=== PATIENT | male | born 1970 | race Hispanic/Latino ===

== ENCOUNTER 2024-02-05 09:29 | Observation (INO) | payer SELFPAY ==
--- NOTE | 2024-02-05 10:52 | RAD REPORT ---
EXAM DESCRIPTION: Mello Single View02/05/2024 10:28 am CLINICAL HISTORY: Dizziness COMPARISON: none FINDINGS: The lungs appear clear of acute infiltrate. The heart is normal size IMPRESSION: No acute abnormalities displayed
[2024-02-05] MEDS ORDERED: cloNIDine HCL 0.1 MG TAB ONE (11:01)
[2024-02-05 11:19] LABS: Absolute Basophils 0.1 K/uL (0-0.5); Absolute Lymphocytes (CBC) 1.6 K/uL (0.7-4.9); Basophils % 1.1 % (0-1.3); Hematocrit 47.8 % (39.6-49.0); Lymphocytes % 33.5 % (15.3-44.8); MCV 91.6 fL (80-100); MPV 8.8 fL (7.6-11.3); Platelets 172 thou/uL (152-406); RBC Red Blood Cell Count 5.21 M/uL (4.33-5.43)
[2024-02-05 11:36] LABS: Anion Gap 9.2 mEq/L (5.0-15.0); Magnesium 2.4 mg/dL (1.6-2.4); Potassium 4.2 mEq/L (3.5-5.1)
[2024-02-05 11:40] LABS: Troponin High Sensitivity 62.2 pg/mL (<58.9)
--- NOTE | 2024-02-05 12:05 | EDPHYS ---
Physician Documentation [facility] Name: Shimon Marcial Age: 53 yrs Sex: Male : 1970 Arrival Date: 02/05/2024 Time: 09:29 Bed 3 Private MD: ED Physician Jeferson Verma HPI: 02/04 11:16 This 53 yrs old Male presents to ER via Ambulatory with complaints of Anxiety, ms3 High Blood Pressure. 11:16 53-year-old male with past medical history of hypertension, diabetes presents to the [facility] emergency department for lightheadedness that occurred after beginning to texture a wall at work today. Patient states he felt like his blood pressure went up. Patient denies nausea, vomiting, chest pain, shortness of breath. Patient denies any alleviating or inciting factors. Historical: - Allergies: 10:53 No Known Allergies; aa5 - Home Meds: 10:53 Unable to obtain [Active]; aa5 - PMHx: 10:53 Hypertensive disorder; NIDDM; aa5 - PSHx: 10:53 None; aa5 - Immunization history:: Adult Immunizations up to date, Client reports receiving the 2nd dose of the Covid vaccine, Last tetanus immunization: up to date. - Social history:: Smoking status: Patient denies any tobacco usage or history of. Patient uses alcohol, on a daily basis. claims drinking about a 6 pack/day. ROS: 11:16 Constitutional: Negative for fever, and chills. Neck: Negative for injury, pain, and ms3 swelling, Cardiovascular: Negative for chest pain, and palpitations. Respiratory: Negative for shortness of breath, cough, wheezing, and pleuritic chest pain, Abdomen/GI: Negative for abdominal pain, nausea, vomiting, diarrhea, and constipation, MS/Extremity: Negative for injury and deformity, Skin: Negative for injury, rash, and discoloration, Neuro: Negative for headache, weakness, numbness, tingling. 11:16 Neuro: Positive for Lightheadedness, Exam: 11:16 Constitutional: This is a well developed, well nourished patient who is awake, alert, ms3 and in no acute distress. Head/Face: Normocephalic, atraumatic. Chest/axilla: Normal chest wall appearance and motion. Nontender with no deformity. Cardiovascular: Regular rate and rhythm with a normal S1 and S2. No gallops, murmurs, or rubs. Normal PMI, no JVD. No pulse deficits. Respiratory: Lungs have equal breath sounds bilaterally, clear to auscultation and percussion. No rales, rhonchi or wheezes noted. No increased work of breathing, no retractions or nasal flaring. Abdomen/GI: Soft, non-tender, with normal bowel sounds. No distension or tympany. No guarding or rebound. No evidence of tenderness throughout. Skin: Warm, dry with normal turgor. Normal color with no rashes, no lesions, and no evidence of cellulitis. MS/ Extremity: Pulses equal, no cyanosis. Neurovascular intact. Full, normal range of motion. 11:16 ECG was reviewed by the Attending Physician. ms3 Vital Signs: 10:51 BP 191 / 89; Pulse 68; Resp 18; Temp 99.1; Pulse Ox 99% ; Weight 107.95 kg; Height 5 aa5 ft. 8 in. ; Pain 0/10; 12:05 BP 170 / 93; Pulse 72; Resp 17 S; Pulse Ox 100% on R/A; kc6 12:25 BP 159 / 90; kc6 13:34 BP 150 / 97; Pulse 69; Resp 16 S; Pulse Ox 98% on R/A; kc6 10:51 Body Mass Index 36.19 (107.95 kg, 172.72 cm) aa5 10:51 Pain Scale: Adult aa5 MDM: 10:20 Patient medically screened. ms3 11:16 Differential diagnosis: hypertensive crisis, Malignant HTN, Arrhythmia. ms3 12:04 Data reviewed: vital signs, nurses notes, lab test result(s), EKG, radiologic studies, ms3 and as a result, I will admit patient. Consideration of Admission/Observation Patient was admitted/placed on observation. Management of patient was discussed with the following: Hospitalist: Dr Michelle. Prepress Stripper: Dr Edmonds. I considered the following discharge prescriptions or medication management in the emergency department Medications were administered in the Emergency Department. See MAR. Independent interpretation of the following test(s) in the Emergency Department EKG: See my EKG interpretation above. Care significantly affected by the following chronic conditions: Diabetes, Hypertension. Counseling: I had a detailed discussion with the patient and/or guardian regarding the historical points, exam findings, and any diagnostic results supporting the discharge/admit diagnosis, lab results, radiology results, the need for further work-up and treatment in the hospital. ED course: Discussed necessity for admission with patient. Patient understands agrees with plan. All questions were answered. Patient remains in stable condition in the emergency department. 02/04 10:12 Order name: Basic Metabolic Panel; Complete Time: 11:45 ms3 02/04 10:12 Order name: CBC with Diff; Complete Time: 11:45 ms3 02/04 10:12 Order name: Magnesium; Complete Time: 11:45 ms3 02/04 10:12 Order name: Troponin HS; Complete Time: 11:45 ms3 02/04 10:12 Order name: XRAY Chest (1 view); Complete Time: 11:45 ms3 02/04 10:12 Order name: EKG; Complete Time: 10:12 ms3 02/04 12:35 Order name: CONS Physician Consult EDMS 02/04 10:12 Order name: Cardiac monitoring; Complete Time: 12:03 ms3 02/04 10:12 Order name: EKG - Nurse/Tech; Complete Time: 11:14 ms3 02/04 10:12 Order name: IV Saline Lock; Complete Time: 11:14 ms3 02/04 10:12 Order name: Labs collected and sent; Complete Time: 11:14 ms3 02/04 10:12 Order name: O2 Per Protocol; Complete Time: 12:03 ms3 02/04 10:12 Order name: O2 Sat Monitoring; Complete Time: 12:03 ms3 EC:16 Rate is 64 beats/min. Rhythm is regular. QRS [place] is Normal. [place] interval is normal. QRS ms3 interval is normal. Clinical impression: NSR w/ Non-specific ST/T Changes. Interpreted by me. Reviewed by me. Administered Medications: 11:06 Drug: cloNIDine PO 0.1 mg PO once Route: PO; aa5 12:03 Follow up: Response: No adverse reaction; Blood pressure is lowered kc6 Disposition Summary: 02/05/24 12:04 Hospitalization Ordered Notes: Hospitalization Status: Inpatient Admission ms3 Provider: Annette Michelle ms3 Condition: Stable ms3 Problem: new ms3 Symptoms: are unchanged ms3 Bed/Room Type: Standard ms3 Location: Telemetry/MedSurg (Inpatient)(02/05/24 18:40) dw Room Assignment: 422(02/05/24 18:40) dw Diagnosis - Essential (primary) hypertension ms3 - Lightheadedness ms3 - Elevated troponin ms3 Forms: - Medication Reconciliation Form ms3 - SBAR form ms3 - Leadership Thank You Letter ms3 Signatures: Dispatcher [employer] Hyun Jovel RN RN Macey Lyon RN RN aa5 Arlene Maldonado Marcus, DO DO ms3 Josefina Gifford RN kc6 Corrections: (The following items were deleted from the chart) 13:13 12:04 Telemetry/MedSurg (Inpatient) ms3 eb 13:13 12:04 ms3 eb 18:40 13:13 [facility] ER HOLD eb dw 18:40 13:13 ERHOLD- eb dw
--- NOTE | 2024-02-05 12:05 | ER ---
Nurse's Notes [facility] Name: Shimon Marcial Age: 53 yrs Sex: Male : 1970 Arrival Date: 02/05/2024 Time: 09:29 Bed 3 Private MD: Diagnosis: Essential (primary) hypertension;Lightheadedness;Elevated troponin Presentation: 02/04 10:51 Chief complaint: Patient states: Pt reports taking all medications as prescribed but aa5 has been unable to check his glucose or BP since Friday. States he was working this morning and "did not feel right. Denies CP, SOB, N/V. Coronavirus screen: Vaccine status: Patient reports receiving the 2nd dose of the covid vaccine. Client denies travel out of the [place] in the last 14 days. Ebola Screen: Patient negative for fever greater than or equal to 101.5 degrees Fahrenheit, and additional compatible Ebola Virus Disease symptoms Patient denies exposure to infectious person. Patient denies travel to an Ebola-affected area in the 21 days before illness onset. Initial Sepsis Screen: Does the patient meet any 2 criteria? No. Patient's initial sepsis screen is negative. Does the patient have a suspected source of infection? No. Patient's initial sepsis screen is negative. Risk Assessment: Do you want to hurt yourself or someone else? Patient reports no desire to harm self or others. Onset of symptoms was February 05, 2024 at 09:00. 10:51 Method Of Arrival: Ambulatory aa5 10:51 Acuity: MACY 2 aa5 Triage Assessment: 10:53 General: Appears in no apparent distress. Behavior is calm, cooperative. Pain: Denies aa5 pain. Cardiovascular: Denies chest pain, diaphoresis, nausea, palpitations, shortness of breath. Respiratory: Denies cough, shortness of breath labored breathing. GI: Patient currently denies nausea, vomiting. Historical: - Allergies: 10:53 No Known Allergies; aa5 - Home Meds: 10:53 Unable to obtain [Active]; aa5 - PMHx: 10:53 Hypertensive disorder; NIDDM; aa5 - PSHx: 10:53 None; aa5 - Immunization history:: Adult Immunizations up to date, Client reports receiving the 2nd dose of the Covid vaccine, Last tetanus immunization: up to date. - Social history:: Smoking status: Patient denies any tobacco usage or history of. Patient uses alcohol, on a daily basis. claims drinking about a 6 pack/day. Screenin:55 [facility] ED Fall Risk Assessment (Adult) History of falling in the last 3 months, aa5 including since admission No falls in past 3 months (0 pts) Confusion or Disorientation No (0 pts) Intoxicated or Sedated No (0 pts) Impaired Gait No (0 pts) Mobility Assist Device Used No (0 pt) Altered Elimination No (0 pt) Score/Fall Risk Level 0 - 2 = Low Risk Oriented to surroundings. Abuse screen: Denies threats or abuse. Denies injuries from another. Nutritional screening: No deficits noted. Tuberculosis screening: No symptoms or risk factors identified. Assessment: 10:55 Reassessment: No changes from previously documented assessment. General: Appears in no aa5 apparent distress. Behavior is calm, cooperative. Cardiovascular: Denies chest pain, diaphoresis, nausea, palpitations, shortness of breath. Respiratory: No deficits noted. Denies cough, shortness of breath labored breathing. 12:04 General: Appears in no apparent distress. comfortable, well groomed, well developed, kc6 Behavior is calm, cooperative, appropriate for age. Pain: Denies pain. Neuro: Level of Consciousness is awake, alert, obeys commands, Oriented to person, place, time, situation, Appropriate for age. Cardiovascular: Denies chest pain, Heart tones S1 S2 present Capillary refill < 3 seconds Rhythm is sinus rhythm. Respiratory: Airway is patent Trachea midline Respiratory effort is even, unlabored, Respiratory pattern is regular, symmetrical. GI: No signs and/or symptoms were reported involving the gastrointestinal system. : No signs and/or symptoms were reported regarding the genitourinary system. EENT: No signs and/or symptoms were reported regarding the EENT system. Derm: No signs and/or symptoms reported regarding the dermatologic system. Skin is intact, is healthy with good turgor, Skin is pink, warm \\T\\ dry. Musculoskeletal: No signs and/or symptoms reported regarding the musculoskeletal system. Circulation, motion, and sensation intact. Capillary refill < 3 seconds, Range of motion: intact in all extremities. 13:33 Reassessment: Patient appears in no apparent distress at this time. No changes from kc6 previously documented assessment. Patient and/or family updated on plan of care and expected duration. Pain level reassessed. Patient is alert, oriented x 3, equal unlabored respirations, skin warm/dry/pink. please see [facility] for further charting. Vital Signs: 10:51 BP 191 / 89; Pulse 68; Resp 18; Temp 99.1; Pulse Ox 99% ; Weight 107.95 kg; Height 5 aa5 ft. 8 in. ; Pain 0/10; 12:05 BP 170 / 93; Pulse 72; Resp 17 S; Pulse Ox 100% on R/A; kc6 12:25 BP 159 / 90; kc6 13:34 BP 150 / 97; Pulse 69; Resp 16 S; Pulse Ox 98% on R/A; kc6 10:51 Body Mass Index 36.19 (107.95 kg, 172.72 cm) aa5 10:51 Pain Scale: Adult aa5 ED Course: 09:40 Patient arrived in ED. im 09:40 Jeferson Verma DO is Attending Physician. ms3 10:30 XRAY Chest (1 view) In Process Unspecified. EDMS 10:53 Triage completed. aa5 10:53 Arm band placed on left wrist. aa5 10:55 Patient has correct armband on for positive identification. Provided Education on: POC, aa5 labs, EKG. treatment plan. 10:55 No provider procedures requiring assistance completed. aa5 11:14 Initial lab(s) drawn, by me, sent to lab. EKG done, by ED staff. Inserted saline lock: [id number] 22 gauge in right wrist, using aseptic technique. Blood collected. 11:57 Josefina Gifford RN is Primary Nurse. kc6 12:03 Annette Michelle MD is Hospitalizing Provider. ms3 13:34 Patient admitted, IV remains in place. kc6 20:14 Primary Nurse role handed off by Josefina Gifford RN cm10 20:34 Diet: Provided with turkey sandwich, chips, pudding, and a sprite. wm Administered Medications: 11:06 Drug: cloNIDine PO 0.1 mg PO once Route: PO; aa5 12:03 Follow up: Response: No adverse reaction; Blood pressure is lowered kc6 Medication: 10:55 VIS not applicable for this client. aa5 Outcome: 12:04 Decision to Hospitalize by Provider. ms3 13:34 Admitted to ER Hold. Please see [facility] for further documentation. kc6 13:34 Condition: good 13:34 Instructed on the need for admit, 22:06 Admitted to Med/surg accompanied by tech, via wheelchair, room 422, Report called to dennys LANZA 22:07 Patient left the ED. tm6 Signatures: Dispatcher [employer] EDMS Macey Townsend, RN RN aa5 Jeferson Verma, DO ms3 Aundrea Aguiar Kaitlyn, RN RN kc6 Marcus Sanchez RN RN jj7 Claudine Alexander Clarissa RN RN cm10 Roscoe Rucker RN RN tm6 Basilio Ortiz jg11
--- NOTE | 2024-02-05 12:28 | P.HP ---
Certification for Inpatient Patient admitted to: Inpatient With expected LOS: <2 Midnights Practitioner: I am a practitioner with admitting privileges, knowledge of patient current condition, hospital course, and medical plan of care. Services: Services provided to patient in accordance with Admission requirements found in Title 42 Section 412.3 of the Code of Federal Regulations Patient History Date of Service: 02/05/24 Reason for admission: Elevated troponin History of Present Illness: Improving 53-year-old male with a past medical history of hypertension,, diabetes presents to the emergency room with elevated blood pressure, anxiety. He reports associated lightheadedness. He reports daily alcohol use, 6 beers daily, no reported chest pain, shortness of breath, nausea vomiting diarrhea. ER lab evaluation was noted to have elevated troponin, hypertension, blood pressure 1 BP 191 / 89; Pulse 68; Resp 18; Temp 99.1; Pulse Ox 99% ; Weight 107.95 kg; Height 5 ft. 8 in. ; Pain 0/10; EKG 6 Rate is 64 beats/min. Rhythm is regular. QRS [place] is Normal. [place] interval is normal. QRS interval is normal. Clinical impression: NSR w/ Non-specific ST/T Changes plan to admit for hypertensive urgency, elevated troponin, NSTEMI, cardiology consulted. Laboratory evaluation troponin 62.2, CBC unremarkable, chest x-ray no acute abnormalities, - Past Medical/Surgical History -: Hypertension -: Xeg-tndrgtt-yjnhegvoy diabetes -: Alcohol use - Social History Smoking Status: Never smoker Alcohol use: Yes CD- Drugs: Yes Place of Residence: Home Review of Systems Per HPI Physical Examination - Physical Exam General: Alert, In no apparent distress, Oriented x3 HEENT: Atraumatic, Normocephalic, PERRLA Neck: 2+ carotid pulse no bruit, JVD not distended Respiratory: Clear to auscultation bilaterally, Normal air movement Cardiovascular: Normal pulses, Regular rate/rhythm Capillary refill: <2 Seconds Gastrointestinal: Normal bowel sounds, Soft and benign Musculoskeletal: No clubbing, No swelling Integumentary: No rashes, No breakdown Neurological: Normal speech, Normal strength at 5/5 x4 extr - Studies Laboratory Data (last 24 hrs) 02/05/24 02/05/24 11:11 11:11 WBC 4.70 Hgb 16.4 Hct 47.8 Plt Count 172 Sodium 136 Potassium 4.2 BUN 13 Creatinine 0.89 Glucose 127 H Magnesium 2.4 Assessment and Plan - Plan Assessment plan NSTEMI elevated troponin Abnormal EKG Hypertensive urgency Cardiology consult, telemetry, trend troponin As needed analgesics, as needed antihypertensives lipid panel blood pressure 1 BP 191 / 89; Pulse 68; Resp 18; Temp 99.1; Pulse Ox 99% ; Weight 107.95 kg; Height 5 ft. 8 in. ; Pain 0/10; EKG 6 Rate is 64 beats/min. Rhythm is regular. QRS [place] is Normal. AR interval is normal. QRS interval is normal. Clinical impression: NSR w/ Non-specific ST/T Changes plan to admit for hypertensive urgency, elevated troponin, NSTEMI, cardiology consulted. Laboratory evaluation troponin 62.2, CBC unremarkable, chest x-ray no acute abnormalities, Alcohol use CIWA per History of essential hypertension Resume appropriate home meds Uan-ohxvwlc-fcfewaiky diabetes mellitus Sliding scale insulin, Accu-Chek Full code DVT Lovenox Diet n.p.o. Disposition Home, independent prior to admission Discharge Plan: Home - Advance Directives Does patient have a Living Will: No Does patient have a Durable POA for Healthcare: No - Code Status/Comfort Care Code Status: Full Code Critical Care: No Time Spent Managing Pts Care (In Minutes): 55
[2024-02-05] MEDS ORDERED: LORazepam 2 MG/ML VIAL IV PRN (12:40)
[2024-02-05 13:54] VITALS: BMI 35.7
[2024-02-05] MEDS: ASPIRIN 81 MG CHEWABLE TABLET PO ONE (15:28)
[2024-02-05] MEDS ORDERED: ASPIRIN 81 MG CHEWABLE TABLET ONE (17:59)
--- NOTE | 2024-02-05 19:30 | CON ---
Date of Consultation: 02/05/2024 Reason For Consultation: Elevated troponin. History Of Present Illness: A 53-year-old male, history of hypertension, diabetes, presented to the emergency room with elevated blood pressure and mild dizziness. Blood pressure was high in the 200 [address] [place]ott. He denies having any chest pain. First troponin was borderline elevated, and the patient does not have any chest pain. Past Medical History: As outlined above in the HPI. Medications: Refer reconciliation sheet for detailed list. Allergies: NO KNOWN DRUG ALLERGIES. Family History: No premature coronary artery disease or cancer. Social History: He does not smoke or drink. Does not use any drugs. Review of Systems: All systems reviewed and they were negative except as mentioned in the HPI. Physical Examination: Vital Signs: Reviewed. Head and Neck: Pupils are equal, reactive to light. Intact eye movements. No JVD. No cervical lym phadenopathy. Neck is supple. Thyroid is not enlarged. Lungs: Clear to auscultation bilaterally. No rhonchi, rales, or crackles. No accessory muscle use. Heart: Regular rate and rhythm. No extra sounds. Abdomen: Soft, nontender. Bowel sounds positive. No organomegaly. No masses or hernia. No rigidi ty or rebound. Extremities: No edema, clubbing, or cyanosis. Intact pulses. Skin: No rash. Neurologic: Alert, awake, oriented x3. No acute focal deficits appreciated. Investigations: First troponin 62. BUN 13, creatinine 0.89, hemoglobin 16.4. Assessment/recommendation: 1.Elevated troponin. No chest pain. It is probably demand ischemia. Trend 2 more sets of cardiac enzymes. Start him on baby aspirin 81 mg daily and plan for an exercise nuclear stress test and an e cho tomorrow. 2.Hypertensive crisis with blood pressure on arrival was 191/89. Recommend to start him on losartan /HCTZ 25/12.5 mg daily and adjust further for better blood pressure control. Obtain an echo. Thank you for the consult. /ANTONI Voice ID: [id number] Report ID: [id number]
[2024-02-05] MEDS ORDERED: ONDANSETRON 4 MG/2 ML VIAL IV PRN (22:22)
[2024-02-05] MEDS ORDERED: FLUMAZENIL 0.1 MG/ML (5 mL VIAL) IV PRN (22:22)
[2024-02-05] MEDS ORDERED: ACETAMINOPHEN 500 MG TAB PO PRN (22:22)
[2024-02-05] MEDS: ATORVASTATIN 20 MG TAB PO SCH (23:01)
[2024-02-05] MEDS: lisinopriL 10 MG TAB PO SCH (23:03)
[2024-02-05] MEDS: METOPROLOL TAR 25 MG TAB PO SCH (23:03)
[2024-02-05] MEDS: INSULIN REGULAR (HUMAN) 100 UNIT/ML SQ SCH (23:03)
[2024-02-06 05:03] LABS: Specific Gravity 1.017 (1.005-1.030); Urine Bilirubin NEGATIVE (Negative); Urine Blood Negative (Negative); Urine Clarity Clear (Clear); Urine Color Light-Yellow (Yellow); Urine Glucose NEGATIVE (Negative); Urine Protein NEGATIVE (Negative); Urine Urobilinogen Normal (Normal); Urine pH 5.5 (5.0-7.0)
[2024-02-06 08:16] LABS: Absolute Lymphocytes (CBC) 1.3 K/uL (0.7-4.9); Basophils % 0.8 % (0-1.3); Hematocrit 42.9 % (39.6-49.0); MCV 92.1 fL (80-100); MPV 8.5 fL (7.6-11.3); Platelets 158 thou/uL (152-406); RBC Red Blood Cell Count 4.66 M/uL (4.33-5.43)
[2024-02-06] MEDS: ASPIRIN EC 81 MG TAB PO SCH (08:18)
[2024-02-06] MEDS: ENOXAPARIN 40 MG/0.4 ML SQ SCH (08:19)
[2024-02-06] MEDS: THIAMINE HCL 100 MG TABLET PO SCH (08:19)
[2024-02-06] MEDS: MULTIVITAMIN TAB PO SCH (08:19)
[2024-02-06] MEDS: FOLIC ACID 1 MG TABLET PO SCH (08:19)
[2024-02-06 08:38] LABS: Anion Gap 8.1 mEq/L (5.0-15.0); Magnesium 2.3 mg/dL (1.6-2.4); Potassium 4.1 mEq/L (3.5-5.1)
[2024-02-06] MEDS ORDERED: LOSARTAN POTASSIUM 50 MG TABLET PO SCH (09:00)
[2024-02-06] MEDS ORDERED: ASPIRIN 81 MG CHEWABLE TABLET PO SCH (09:00)
--- NOTE | 2024-02-06 09:00 | P.PN ---
Subjective Date of Service: 02/06/24 Chief Complaint: Elevated troponin Presented with hypertensive urgency, troponin, no reported chest pain being evaluated by cardiology - Physical Exam General: Alert, In no apparent distress, Oriented x3 HEENT: Atraumatic, Normocephalic, PERRLA Neck: 2+ carotid pulse no bruit, JVD not distended Respiratory: Clear to auscultation bilaterally, Normal air movement Cardiovascular: Normal pulses, Regular rate/rhythm Capillary refill: <2 Seconds Gastrointestinal: Normal bowel sounds, Soft and benign Musculoskeletal: No clubbing, No swelling Integumentary: No rashes, No breakdown Neurological: Normal speech, Normal strength at 5/5 x4 extr Review of Systems Per HPI Physical Examination - Vital Signs Temperature: 97.0 F Blood Pressure: 137/73 Pulse: 64 Respirations: 16 Pulse Ox (%): 97 - Studies Laboratory Data (last 24 hrs) 02/05/24 02/05/24 11:11 11:11 WBC 4.70 Hgb 16.4 Hct 47.8 Plt Count 172 Sodium 136 Potassium 4.2 BUN 13 Creatinine 0.89 Glucose 127 H Magnesium 2.4 Assessment And Plan - Plan Assessment plan NSTEMI elevated troponin Abnormal EKG Hypertensive urgency Cardiology consult, telemetry, trend troponin As needed analgesics, as needed antihypertensives lipid panel blood pressure 1 BP 191 / 89; Pulse 68; Resp 18; Temp 99.1; Pulse Ox 99% ; Weight 107.95 kg; Height 5 ft. 8 in. ; Pain 0/10; EKG 6 Rate is 64 beats/min. Rhythm is regular. QRS [place] is Normal. [place] interval is normal. QRS interval is normal. Clinical impression: NSR w/ Non-specific ST/T Changes plan to admit for hypertensive urgency, elevated troponin, NSTEMI, cardiology consulted. Laboratory evaluation troponin 62.2, CBC unremarkable, chest x-ray no acute abnormalities, Cardiology 1. Elevated troponin. No chest pain. It is probably demand ischemia. Trend 2 more sets of cardiac enzymes. Start him on baby aspirin 81 mg daily and plan for an exercise nuclear stress test and an echo tomorrow. 2. Hypertensive crisis with blood pressure on arrival was 191/89. Recommend to start him on losartan/HCTZ 25/12.5 mg daily and adjust further for better blood pressure control. Obtain an echo. Thank you for the consult. Alcohol use CIWA per History of essential hypertension Resume appropriate home meds Ehd-tggbuyh-ulftnytrb diabetes mellitus Sliding scale insulin, Accu-Chek Full code DVT Lovenox Diet n.p.o. Disposition Home, independent prior to admission Discharge Plan: Home - Code Status/Comfort Care Code Status: Full Code Critical Care: No Time Spent Managing PTS Care (In Minutes): 35
[2024-02-06 09:37] VITALS: O2SAT 97
[2024-02-06 15:04] VITALS: TEMP 97.4
[2024-02-06 15:32] VITALS: BP 146/86
--- NOTE | 2024-02-06 16:17 | P.PN ---
Subjective Date of Service: 02/06/24 Chief Complaint: Elevated troponin Subjective: No new changes Review of Systems 10-point ROS is otherwise unremarkable Physical Examination - Vital Signs Temperature: 97.4 F Blood Pressure: 146/86 Pulse: 60 Respirations: 18 Pulse Ox (%): 96 - Physical Exam General: Alert HEENT: Atraumatic Neck: Supple Respiratory: Clear to auscultation bilaterally Cardiovascular: No edema, Normal S1 S2 Gastrointestinal: Normal bowel sounds Assessment And Plan - Current Problems (Diagnosis) (1) Type 2 DE (myocardial infarction) Current Visit: Yes Status: Acute - Plan Patient troponin trended down and no significant delta, echo is normal, no chest pain agree with discharging patient and outpatient follow up with cardiology for stress test. explained to patient and agree with plan.
--- NOTE | 2024-02-07 07:14 | P.DS ---
Admission Date: 02/05/24 Discharge Date: 02/07/24 Disposition: ROUTINE DISCHARGE Discharge Condition: GOOD Reason for Admission: Elevated troponin Brief History of Present Illness: Improving 53-year-old male with a past medical history of hypertension,, diabetes presents to the emergency room with elevated blood pressure, anxiety. He reports associated lightheadedness. He reports daily alcohol use, 6 beers daily, no reported chest pain, shortness of breath, nausea vomiting diarrhea. ER lab evaluation was noted to have elevated troponin, hypertension, blood pressure 1 BP 191 / 89; Pulse 68; Resp 18; Temp 99.1; Pulse Ox 99% ; Weight 107.95 kg; Height 5 ft. 8 in. ; Pain 0/10; EKG 6 Rate is 64 beats/min. Rhythm is regular. QRS [place] is Normal. [place] interval is normal. QRS interval is normal. Clinical impression: NSR w/ Non-specific ST/T Changes plan to admit for hypertensive urgency, elevated troponin, NSTEMI, cardiology consulted. Laboratory evaluation troponin 62.2, CBC unremarkable, chest x-ray no acute abnormalities Physical Exam General: Alert, In no apparent distress, Oriented x3 HEENT: Atraumatic, Normocephalic, PERRLA Neck: 2+ carotid pulse no bruit, JVD not distended Respiratory: Clear to auscultation bilaterally, Normal air movement Cardiovascular: Normal pulses, Regular rate/rhythm Capillary refill: <2 Seconds Gastrointestinal: Normal bowel sounds, Soft and benign Musculoskeletal: No clubbing, No swelling Integumentary: No rashes, No breakdown Neurological: Normal speech, Normal strength at 5/5 x4 extr Hospital Course: 53-year-old male with a past medical has hypertension presented to the emergency room with elevated blood pressure. He reports under a lot of stress from divorce, treated with antihypertensives.'s, telemetry, evaluated by surgery, plan to discharge home follow-up with primary care, follow-up with cardiology for stress test outpatient. Problem Hypertension uncontrolled Elevated troponin Anxiety Follow-up with cardiology for outpatient stress test year-old female patient presented with Was noted to have Condition improved with Patient tolerating diet, stable for discharge to home with follow-up appointment with primary care physician. Discharge medication Lipitor, Metoprolol, Xanax, INSTRUCTIONS: Physician Discharge Instructions: -Follow-up with PCP in 1 to 2 weeks -Please call Dr. Michelle at [phone] if any questions regarding hospital stay -Please call nursing station at [phone] if any nursing or medication questions -Return to the emergency room if symptoms worsen Diet: ADA, low sodium Activity: Fall precautions Vital Signs/Physical Exam: Temp Pulse Resp BP Pulse Ox 97.4 F 60 18 146/86 H 96 02/06/24 16:17 02/06/24 16:17 02/06/24 16:17 02/06/24 16:17 02/06/24 16:17 Laboratory Data at Discharge: WBC 5.10 thou/uL (4.3-10.9) 02/06/24 07:59 Hgb 14.6 g/dL (13.6-17.9) D 02/06/24 07:59 Hct 42.9 % (39.6-49.0) 02/06/24 07:59 Plt Count 158 thou/uL (152-406) 02/06/24 07:59 Sodium 137 mEq/L (136-145) 02/06/24 07:57 Potassium 4.1 mEq/L (3.5-5.1) 02/06/24 07:57 BUN 15 mg/dL (7-18) 02/06/24 07:57 Creatinine 0.88 mg/dL (0.70-1.30) 02/06/24 07:57 Glucose 148 mg/dL (74-106) H 02/06/24 07:57 Magnesium 2.3 mg/dL (1.6-2.4) 02/06/24 07:57 Triglycerides 106 mg/dL (<150) 02/06/24 07:57 Cholesterol 150 mg/dL (<200) 02/06/24 07:57 HDL Cholesterol 45 mg/dL (40-60) 02/06/24 07:57 Cholesterol/HDL Ratio 3.33 02/06/24 07:57 Home Medications: Hydrochlorothiazide 50 mg PO DAILY 02/05/24 Lisinopril [Zestril] 20 mg PO DAILY 02/05/24 Metformin ER [Glucophage ER*] 50 mg PO BID 02/05/24 Alprazolam [Xanax] 0.25 mg PO BID PRN #30 tab 02/06/24 Atorvastatin Calcium [Lipitor*] 20 mg PO BEDTIME #30 tab 02/06/24 Metoprolol Tartrate [Lopressor] 25 mg PO BID #60 tab 02/06/24 New Medications: Atorvastatin Calcium [Lipitor*] 20 mg PO BEDTIME #30 tab Metoprolol Tartrate [Lopressor] 25 mg PO BID #60 tab Alprazolam [Xanax] 0.25 mg PO BID PRN #30 tab PRN Reason: Anxiety Physician Discharge Instructions: -DC IV and DC home -Follow-up with PCP in 1 to 2 weeks -Follow-up with Cardiology in 1 to 2 weeks -Please call Dr. Michelle at [phone] if any questions regarding hospital stay -Please call nursing station at [phone] if any nursing or medication questions -Return to the emergency room if symptoms worsen Diet: AHA Activity: Fall precautions Followup: NONE,NONE [Primary Care Provider] - Wilson Edmonds MD [ACTIVE - CAN ADMIT] - 1-2 Weeks Time spent managing pt's care (in minutes): 55
[2024-02-07] MEDS ORDERED: LOSARTAN POTASSIUM 50 MG TABLET PO SCH (09:00)
--- NOTE | 2024-02-09 12:34 | ECHO ---
HEIGHT: 5 ft 8 in WEIGHT: 235 lb 0 oz DATE OF STUDY: 02/06/[address]: Wilson Edmonds 2-DIMENSIONAL: YES M.MODE: YES DOPPLER: YES COLOR FLOW: YES TDS: NO PORTABLE: YES DEFINITY: NO BUBBLE STUDY: NO DIAGNOSIS: ELEVATED TROPONIN CARDIAC HISTORY: CATHERIZATION: NO SURGERY: NO PROSTHETIC VALVE: NO PACEMAKER: NO MEASUREMENTS (cm) DIASTOLIC (NORMALS) SYSTOLIC (NORMALS) IVSd 1.4 (0.6-1.2) LA Diam 3.1 (1.9-4.0) LVEF 55-60% LVIDd 4.3 (3.5-5.7) LVIDs 3.1 (2.0-3.5) %FS 28% LVPWd 1.3 (0.6-1.2) Ao Diam 3.3 (2.0-3.7) 2 DIMENSIONAL ASSESSMENT: RIGHT ATRIUM: NORMAL LEFT ATRIUM: NORMAL RIGHT VENTRICLE: NORMAL LEFT VENTRICLE: NORMAL TRICUSPID VALVE: NORMAL MITRAL VALVE: NORMAL PULMONIC VALVE: NORMAL AORTIC VALVE: TRACE OF AORTIC REGURGITATION PERICARDIAL EFFUSION: NONE AORTIC ROOT: NORMAL LEFT VENTRICULAR WALL MOTION: NORMAL. DOPPLER/COLOR FLOW: NORMAL. COMMENTS: NORMAL LEFT VENTRICULAR SYSTOLIC FUNCTION, EJECTION FRACTION 55-60%, NORMAL WALL MOTION. NORMAL DIASTOLIC FUNCTION. TECHNOLOGIST: ABRAHAM JEFF
== END 2024-02-06 16:17 | disposition home or self-care (01) ==
LOC: ER 09:29 → ERHOLD 12:32 → 4TH 19:17
PROVIDERS: ADMIT Hospitalist; ATTEND Hospitalist
DX: I21.A1 Myocardial infarction type 2 (principal); R79.89 Other specified abnormal findings of blood chemistry; R94.31 Abnormal electrocardiogram [ECG] [EKG]; I10 Essential (primary) hypertension; E11.9 Type 2 diabetes mellitus without complications; F41.9 Anxiety disorder, unspecified; R42 Dizziness and giddiness; F10.90 Alcohol use, unspecified, uncomplicated
CPT/HCPCS: 36415; 71045; 80048; 80061; 81003; 82947; 83735; 84484; 85025; 93005; 93306; 99285; G0378; J1650; J1815